=== PATIENT | female | born 1965 | race Caucasian/White ===

== ENCOUNTER → 2018-10-10 11:19 | Outpatient (CLI) | payer MEDICARE, MEDICAID, SELFPAY ==
[2012-12-22 04:16] VITALS: BMI 47.6
[2018-10-10 12:03] LABS: Hematocrit 42.8 % (37-47); Hemoglobin 13.8 g/dL (12.0-15.0); Mean Corp Hgb Conc 32.2 g/dL (32-36); Mean Corpuscular Hgb 27.8 pg (27.0-32.0); Mean Corpuscular Volume 86.3 fL (81-99); Mean Platelet Vol. 10.2 fl (6.2-12.0); Platelet Count 200 K/mm3 (150-450); RBC Distribution Width CV 13.5 % (11.6-14.6); Red Blood Count 4.96 M/mm3 (4.2-5.4); White Blood Count 7.3 K/mm3 (4.4-11.0)
[2018-10-10 12:36] LABS: ALB/GLOB Ratio 0.7 RATIO (0.9-2.4); AST(SGOT) 14 U/L (15-37); Alanine Aminotransfer ALT/SGPT 39 U/L (13-56); Albumin, Serum 3.4 g/dL (3.2-5.0); Alkaline Phosphatase 78 U/L (45-117); Anion Gap 7 (5-15); BUN 11 mg/dL (7-18); BUN/Creat Ratio 14.9 RATIO (10-20); Calcium,Total 8.4 mg/dL (8.5-10.1); Chloride 110 mmol/L (98-107); Cholesterol 152 mg/dL (200); Creatinine, Serum 0.74 mg/dL (0.55-1.02); EST Glomerular Filtration Rate 87 mL/min (>60); Est Glom Filt Rate - Afr Amer 106 mL/min (>60); Globulin 4.6 g/dL (2.2-4.2); Glucose 97 mg/dL (74-106); High Density Lipoprotein 44 mg/dL; Magnesium 2.1 mg/dL (1.6-2.6); Potassium 4.2 mmol/L (3.5-5.1); Sodium Level 143 mmol/L (136-145); Thyroid Stim Hormone (TSH) < 0.01 uIU/mL (0.358-3.74); Triglycerides 63 mg/dL; Very Low Density Lipoprotein 13 mg/dL (5-40)
[2018-10-13 10:24] LABS: T3 Total - Triiodothyronine 1.56 ng/mL (0.6-1.81); Vitamin B12 361 pg/mL (211-911)
[2018-10-15 13:12] LABS: Vitamin D 1,25-Dihydroxy 33.2 pg/mL (19.9-79.3)
== END ==
PROVIDERS: Referring Provider Nurse Practitioner Family; Visit Provider Nurse Practitioner Family
DX: I10 Essential (primary) hypertension (principal); R25.2 Cramp and spasm; Z13.220 Encounter for screening for lipoid disorders; E03.2 Hypothyroidism due to medicaments and other exogenous substances
CPT/HCPCS: 36415; 80053; 80061; 82607; 82652; 83735; 84439; 84443; 84480; 85027

== ENCOUNTER 2019-03-28 13:39 | Emergency (ER) | payer MEDICARE, MEDICAID, SELFPAY ==
[2019-03-28 13:41] VITALS: BP 161/81; PULSE 114; RESP 17; TEMP 37.2; O2SAT 96; BMI 37.6
--- NOTE | 2019-03-28 14:20 | ED.DCSUM_ITS ---
History of Present Illness Informant: Patient, Significant Other Onset: Yesterday Context: Gradual Onset Timing: Continuous Quality: nausea Location: stomach Current Severity: Severe Maximum Severity: Severe Worsened by: food/drink Relieved by: nothing Associated Symptoms: Cough, nausea Narrative: 54-year-old female to the emergency department with Prior similar symptoms: No Recent Illness/Hospitalization: No <Oli Denton - Last Filed: 03/28/19 16:40> <Elvis Roger - Last Filed: 03/28/19 20:48> Chief Complaint: General Illness Past Medical History Surgical History: appendectomy, cholecystectomy, hysterectomy Smoking Status: Current every day smoker <Oli Denton - Last Filed: 03/28/19 16:40> <Elvis Roger - Last Filed: 03/28/19 20:48> - Allergies and Home Meds Allergies/Adverse Reactions: Allergies hydromorphone HCl [From Dilaudid] Allergy (Verified 03/28/19 13:40) Hives Penicillins Allergy (Verified 03/28/19 13:40) Anaphylaxis Sulfa (Sulfonamide Antibiotics) Allergy (Verified 03/28/19 13:40) Hives tree nut Allergy (Verified 03/28/19 13:40) Anaphylaxis clonazepam [From Klonopin] Adverse Reaction (Verified 03/28/19 13:40) Other hydroxyzine HCl [From Vistaril] Adverse Reaction (Verified 03/28/19 13:40) Other hydroxyzine pamoate [From Vistaril] Adverse Reaction (Verified 03/28/19 13:40) Other Primary Care Physician: Nia De Jesus NP-C [Primary Care Provider] - Review of Systems General: Denies: Chills, Fever Cardiovascular: Denies: Chest pain, Palpitations Respiratory: Reports: Cough. Denies: Dyspnea, Sputum Gastrointestinal: Reports: Nausea. Denies: Abdominal pain, Diarrhea, Constipation Musculoskeletal: Reports: Arthralgias. Denies: Myalgias <Elvis Roger - Last Filed: 03/28/19 20:48> Physical Exam Vital Signs/Narrative: Vital Signs Temp Pulse Resp BP Pulse Ox 03/28/19 13:41 99.0 F 114 H 17 161/81 H 96 <Oli Denton - Last Filed: 03/28/19 16:40> Vital Signs/Narrative: Vital Signs Pulse Resp BP Pulse Ox 03/28/19 16:53 93 16 137/75 H 98 General: Well nourished, Well developed Head: Normocephalic, Atraumatic Eyes: EOMI Cardiovascular: Regular rhythm, Tachycardia Respiratory: No distress, CTA bilaterally Abdomen: Soft, Nontender, Nondistended. Negative for: Guarding <Elvis Roger - Last Filed: 03/28/19 20:48> Diagnostic/Tx/Re-eval Microbiology Past 72 Hours 03/28/19 14:00 Mucosa - Nasopharyngeal Influenza Types A,B Direct FA ([place]) - Final Laboratory Results 03/28/19 14:20: WBC 7.0, RBC 4.77, Hgb 13.3, Hct 39.7, MCV 83.2, MCH 27.9, MCHC 33.5, RDW Std Deviation 39.2, RDW Coeff of Fran 13.0, Plt Count 186, MPV 9.6, Immature Gran % (Auto) 0.700, Neut % (Auto) 83.3 H, Lymph % (Auto) 7.2 L, Spink % (Auto) 7.3, Eos % (Auto) 1.4, Baso % (Auto) 0.1, Absolute Neuts (auto) 5.8, Absolute Lymphs (auto) 0.50 L, Nucleated RBC % 0 03/28/19 14:20: Sodium 139, Potassium 3.6, Chloride 108 H, Carbon Dioxide 27.0, Anion Gap 4 L, BUN 8, Creatinine 0.82, Estim Creat Clear Calc 69.75, Est GFR (MDRD) Af Amer 93, Est GFR (MDRD) Non-Af 76, BUN/Creatinine Ratio 9.7 L, Glucose 116 H, Calcium 8.8, Total Bilirubin 0.20, AST 17, ALT 39, Alkaline Phosphatase 65, Total Protein 8.0, Albumin 3.4, Globulin 4.6 H, Albumin/Globulin Ratio 0.7 L , Lipase 59 L 03/28/19 14:25: Urine Color Yellow, Urine Clarity Clear, Urine pH 6.0, Ur Specific [place] 1.025, Urine Protein 15 H, Urine Glucose (UA) Normal, Urine Ketones 5 H, Urine Occult Blood 10 H, Urine Nitrite Positive H, Urine Bilirubin Negative, Urine Urobilinogen Normal, Ur Leukocyte Esterase 25 H, Urine RBC 0 SEEN, Urine WBC 0-5 SEEN, Ur Squamous Epith Cells 0 SEEN, Urine Bacteria 0 SEEN, Urine Mucus 0 SEEN - Medical Decision Making I 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 She has a cough and nausea. Her work-up was unremarkable except for signs of a UTI. She is not septic or otherwise in distress. She is appropriate for outpatient follow-up. She was discharged on antibiotics. Follow-up with her PCP or return for any new or worsening issues. <Elvis Roger - Last Filed: 03/28/19 20:48> ED Disposition <Oli Denton - Last Filed: 03/28/19 16:40> <Elvis Roger - Last Filed: 03/28/19 20:48> - Plan for ED Patient: Disposition: Home or Assisted Living Diagnosis: Nausea & vomiting, UTI (urinary tract infection) Instructions: Bladder Infection, Female (Adult) Prescriptions: Nitrofurantoin Macrocrystals [Macrobid] 100 mg PO Q12 #14 cap Prescription Printed Ondansetron [Zofran Odt] 4 mg PO Q8H PRN PRN #10 tab PRN Reason: Nausea Prescription Printed Referrals: Nia De Jesus, ECHOCARDIOGRAPHY TECH-C [Primary Care Provider] -
[2019-03-28] MEDS: 0.9% Normal Saline 1,000 ML 1000 ML IV (14:22)
[2019-03-28] MEDS: Ondansetron 4 MG/2 ML Vial IV ×2 (14:22→16:27)
[2019-03-28 14:28] LABS: Absolute Neutrophil Count 5.8 X10^3/uL (2.0-7.7); Basophil# 0.01 X10^3/uL; Basophil% 0.1 % (0-1); Eosinophils% 1.4 % (0-5); Hematocrit 39.7 % (37-47); Hemoglobin 13.3 g/dL (12.0-15.0); Lymphocyte % 7.2 % (19-41); Mean Corp Hgb Conc 33.5 g/dL (32-36); Mean Corpuscular Hgb 27.9 pg (27.0-32.0); Mean Corpuscular Volume 83.2 fL (81-99); Mean Platelet Vol. 9.6 fl (6.2-12.0); Monocyte# 0.51 X10^3/uL; Monocyte% 7.3 % (0-10); NRBC Flagged by Analyzer 0 % (0-5); Neutrophil # 5.79 X10^3/uL (2.7-7.7); Neutrophil % 83.3 % (47-70); POSITIVE DIFFERENTIAL YES; Platelet Count 186 K/mm3 (150-450); RBC Distribution Width SD 39.2 fl (35.1-43.9); Red Blood Count 4.77 M/mm3 (4.2-5.4)
[2019-03-28 14:32] LABS: Differential Indicated SCAN CRITERIA MET
[2019-03-28 14:33] LABS: Bacteria 0 SEEN /hpf (None Seen); Mucous, Urine 0 SEEN /hpf (<or=2+); Squamous Epithelial Cells - UA 0 SEEN /hpf (5-10)
[2019-03-28 14:34] LABS: Color, Urine Yellow (Yellow); Glucose, Dipstick Normal (Normal); Ketone-Dipstick 5 mg/dl (Negative); Leukocyte Esterase-Dipstick 25 /ul (Negative); Nitrite-Dipstick Positive (Negative); Occult Blood-Urine 10 /ul (Negative); Protein-Dipstick 15 mg/dl (Negative); Specific Gravity, Urine 1.025 (1.002-1.030); Urine Bilirubin Dipstick Negative (Negative); Urine Clarity Clear (Clear); Urine Urobilinogen Normal (Normal)
[2019-03-28 14:42] LABS: Red Blood Cells-Urine 0 SEEN /hpf (0-5); White Blood Cells 0-5 SEEN /hpf (0-5)
[2019-03-28 14:46] LABS: ALB/GLOB Ratio 0.7 RATIO (0.9-2.4); AST(SGOT) 17 U/L (15-37); Alanine Aminotransfer ALT/SGPT 39 U/L (13-56); Albumin, Serum 3.4 g/dL (3.2-5.0); Alkaline Phosphatase 65 U/L (45-117); Anion Gap 4 (5-15); BUN 8 mg/dL (7-18); BUN/Creat Ratio 9.7 RATIO (10-20); Calcium,Total 8.8 mg/dL (8.5-10.1); Chloride 108 mmol/L (98-107); Creatinine, Serum 0.82 mg/dL (0.55-1.02); EST Glomerular Filtration Rate 76 mL/min (>60); Est Glom Filt Rate - Afr Amer 93 mL/min (>60); Estimated Creatinine Clearance 69.75 ml/min; Globulin 4.6 g/dL (2.2-4.2); Glucose 116 mg/dL (74-106); Lipase 59 U/L (73-393); Potassium 3.6 mmol/L (3.5-5.1); Sodium Level 139 mmol/L (136-145)
--- NOTE | 2019-03-28 14:46 | RAD_ITS ---
STUDY: X-RAY CHEST REASON FOR EXAM: Female, 54 years old. COUGH, SOB AND NOT FEELING WELL. NAUSEA AND VOMITING SINCE THIS MORNING. TECHNIQUE: PA and lateral views of the chest. COMPARISON: January 19, 2013 FINDINGS: The lungs are clear and expanded. There are granulomatous calcifications. There is no demonstrated pleural abnormality. Normal size heart. Normal mediastinum and michael. Normal visualized pulmonary arteries. Normal visualized aortic arch and descending thoracic aorta. There is a dextroscoliosis of the thoracic spine. There is degenerative change of the spine. Normal visualized ribs, clavicles, and shoulders. There is no demonstrated abnormality of the visualized soft tissue structures of the upper abdomen. RAD/Chest PA and Lateral IMPRESSION: Degenerative changes, as described above. No demonstrated acute cardiopulmonary process. Electronically Signed: Joshua Moody MD at 15:39 EST , Service support ,
[2019-03-28 15:48] VITALS: BP 110/74; PULSE 65; RESP 16; O2SAT 100
[2019-03-28 15:59] VITALS: BP 137/75; PULSE 91; RESP 16; O2SAT 98
[2019-03-28] MEDS: Nitrofurantoin Macrocrystals 100 MG Capsule PO (16:50)
[2019-03-28 16:53] VITALS: BP 137/75; PULSE 93; RESP 16; O2SAT 98
== END 2019-03-28 16:58 | disposition home or self-care (01) ==
PROVIDERS: Emergency Provider Physician Assistant Medical; PCP Nurse Practitioner Family
DX: R11.2 Nausea with vomiting, unspecified (principal); N39.0 Urinary tract infection, site not specified; F17.200 Nicotine dependence, unspecified, uncomplicated
CPT/HCPCS: 71046; 80053; 81001; 83690; 85025; 87086; 87088; 87804; 96361; 96374; 96376; 99284; J7030; A4216; J2405

== ENCOUNTER → 2022-08-26 | Outpatient (CLI) | payer MEDICARE, MEDICAID, SELFPAY ==
[2022-08-26 13:54] LABS: Thyroid Stim Hormone (TSH) 0.26 uIU/mL (0.358-3.74)
== END | disposition home or self-care (01) ==
PROVIDERS: PCP Nurse Practitioner Family; Referring Provider Nurse Practitioner Family; Visit Provider Nurse Practitioner Family
DX: E03.2 Hypothyroidism due to medicaments and other exogenous substances (principal)
CPT/HCPCS: 36415; 84443

== ENCOUNTER → 2023-03-10 | Outpatient (CLI) | payer MEDICARE, MEDICAID, SELFPAY ==
--- OUTSIDE RECORDS SUMMARY | 2023-03-10 12:42 | XMS RPT_ITS | CCD ---
Author Name Unknown Address [address] [place] [address] Organization [facility] Care Team Providers Care Workers' Compensation Claims Examiner Name Role Phone ACACIA BRASHER CNP Attending Unavailable ACACIA BRASHER CNP Admitting Unavailable ACACIA BRASHER CNP Primary Care Unavailable ACACIA BRASHER CNP Consulting Unavailable PROVIDER, UNKNOWN Consulting Unavailable PROVIDER, UNKNOWN Consulting Unavailable ACACIA BRASHER CNP Consulting Unavailable ACACIA BRASHER CNP Attending Unavailable ACACIA BRASHER CNP Admitting Unavailable ACACIA BRSAHER CNP Primary Care Unavailable PROVIDER, UNKNOWN Consulting Unavailable PROVIDER, UNKNOWN Consulting Unavailable ACACIA BRASHER CNP Attending Unavailable ACACIA BRASHER CNP Admitting Unavailable ACACIA BRASHER CNP Primary Care Unavailable ACACIA BRASHER CNP Consulting Unavailable PROVIDER, UNKNOWN Consulting Unavailable PROVIDER, UNKNOWN Consulting Unavailable ACACIA BRASHER CNP Attending Unavailable ACACIA BRASHER CNP Admitting Unavailable ACACIA BRASHER CNP Primary Care Unavailable ACACIA BRASHER CNP Consulting Unavailable PROVIDER, UNKNOWN Consulting Unavailable PROVIDER, UNKNOWN Consulting Unavailable Allergies Allergy Classification Reported Allergen(s) Allergy Type Date of Onset Reaction(s) Facility (1 source) clonazePAM Drug Allergy [facility] (1 source) HYDROmorphone Drug Allergy [facility] (1 source) hydrOXYzine Drug Allergy [facility] (1 source) Penicillins Drug allergy (disorder) [facility] (1 source) Sulfonamides (Antibiotic) Drug allergy (disorder) [facility] Problems Active Problems Problem Classification Problem Date Documented Date Episodic/Chronic Thyroid disorders (2 sources) Hypothyroidism due to medicaments and other exogenous substances; Translations: [Hypothyroidism due to medicaments and other exogenous substances] Onset: 07-25-2022 Chronic Past or Other Problems Problem Classification Problem Date Documented Da te Episodic/Chronic Other screening for suspected conditions (not mental disorders or infectious disease) (5 sources) Encounter for screening for diseases of the blood and blood-forming organs and certain disorders involving the immune mechanism; Translations: [Encounter for screening for diabetes mellitus] Onset: 07-25-2022 Episodic Results Test Name Value Interpretation Reference Range Facil ity Encounters Encounter Date Encounter Type Care Provider Facility Start: 02-14-2023 ambulatory ACACIA ESPOSITO [facility] Start: 07-30-2022 ambulatory ACACIA [facility] Start: 07-25-2022 End: 07-25-2022 ambulatory ACACIA [facility] Payers Date Payer Category Payer Unknown [id number] 1965 Unknown [id number] 1965 Unknown [id number] 1965 Unknown [id number] Medicaid [id number] Medicare [id number] Summary Purpose Family History No Family History Records FoundNo Family History Records Found Advance Directives No Advanced Directives Records FoundNo Advanced Directives Records Found Additional Source Comments INFORMATION SOURCE (unrecogn ized section and content) DATE CREATED AUTHOR AUTHOR'S ORGANIZ ATION 02/15/2023 [facility] FOR RECORDS PERTAINING TO PATIENTS WHO ARE OR HAVE BEEN ENROLLED IN A CHEMICAL DEPENDENCY/SUBSTANCEABUSE PROGRAM, SOME INFORMATION MAY BE OMITTED. This clinical summary was aggregated from multiple sources. Caution should be exercised in using it in the provision of clinical care. This summary normalizes information from multiple sources, and as a consequence, information in this document may materially change the coding, format and clinical context of patient data. In addition, data may be omitted in some cases. CLINICAL DECISIONS SHOULD BE BASED ON THE PRIMARY CLINICAL RECORDS. [facility] [employer] [facility]. provides no warranty or guarantee of the accuracy or completeness of information in this document.
== END | disposition home or self-care (01) ==
PROVIDERS: PCP Nurse Practitioner Family; Referring Provider Nurse Practitioner Family; Visit Provider Nurse Practitioner Family
DX: E03.2 Hypothyroidism due to medicaments and other exogenous substances (principal)
CPT/HCPCS: 36415; 84443

== ENCOUNTER → 2023-09-01 | Outpatient (CLI) | payer MEDICAID, MEDICARE, SELFPAY | END | disposition home or self-care (01) | LOC: LABSPEC 10:02 | PROVIDERS: PCP Nurse Practitioner Family; Referring Provider Nurse Practitioner Family; Visit Provider Nurse Practitioner Family | DX: R30.0 Dysuria (principal) | CPT/HCPCS: 87086; 87088 ==

== ENCOUNTER → 2024-08-03 | Outpatient (CLI) | payer MEDICARE, MEDICAID, SELFPAY ==
[2024-08-03 17:51] LABS: Absolute Lymphocyte Count 1.96 X10^3/uL (0.83-4.51); Basophil# 0.07 X10^3/uL; Basophil% 0.7 % (0-1); Eosinophil# 0.19 X10^3/uL; Eosinophils% 1.9 % (0-5); Hematocrit 42.3 % (37-47); Hemoglobin 13.6 g/dL (12.0-15.0); Lymphocyte # 1.96 X10^3/ul (0.83-4.51); Mean Corp Hgb Conc 32.2 g/dL (32-36); Mean Corpuscular Hgb 27.8 pg (27.0-32.0); Mean Corpuscular Volume 86.5 fL (81-99); Monocyte# 0.53 X10^3/uL; Monocyte% 5.4 % (0-10); NRBC Flagged by Analyzer 0 % (0-5); Neutrophil % 71.6 % (47-70); Platelet Count 271 K/mm3 (150-450); RBC Distribution Width CV 14.6 % (11.6-14.6); RBC Distribution Width SD 46.4 fl (35.1-43.9); Red Blood Count 4.89 M/mm3 (4.2-5.4); White Blood Count 9.8 K/mm3 (4.4-11.0)
[2024-08-03 18:26] LABS: AST(SGOT) 23 U/L (<=31); Alanine Aminotransfer ALT/SGPT 22 U/L (<=34); Albumin, Serum 3.8 g/dL (3.4-4.8); Alkaline Phosphatase 88 U/L (35-104); Anion Gap 11 (5-15); BUN 10 mg/dL (4-19); BUN/Creat Ratio 10.7 RATIO (10-20); Carbon Dioxide 26.9 mmol/L (21.0-32.0); Chloride 101 mmol/L (98-108); Cholesterol 218 mg/dL (<=200); Creatinine, Serum 0.95 mg/dL (0.70-1.20); EST Glomerular Filtration Rate 69 (>60); Glucose 103 mg/dL (70-99); High Density Lipoprotein 42 mg/dL; Low Density Lipoprotein Calc. 156 mg/dL; Protein, Total 7.8 g/dL (5.9-8.4); Sodium Level 139 mmol/L (133-145); Total Bilirubin 0.54 mg/dL (0.00-1.30); Triglycerides 103 mg/dL; Very Low Density Lipoprotein 21 mg/dL (5-40); cholesterol:hdl ratio screen 5.24
== END | disposition home or self-care (01) ==
LOC: BFHLAB 14:23
PROVIDERS: PCP Nurse Practitioner Family; Visit Provider Nurse Practitioner Family
DX: I10 Essential (primary) hypertension (principal); E03.2 Hypothyroidism due to medicaments and other exogenous substances
CPT/HCPCS: 36415; 80053; 80061; 84439; 84443; 85025